=== PATIENT | female | born 1965 | race African-American/Black ===

== ENCOUNTER 2017-05-25 16:08 | Emergency (ER) | payer OTHER ==
[~2017-05-25] VITALS: Ht 162.6 cm; Wt 96.8 kg
[~2017-05-25 16:08] MED LIST: ALBUTEROL0.63 MG/3 IH; CENTRUM COMPLE1 EACH PO; FLUCONAZOLE150 MG PO; LANTUS 3 M100 UNITS1 SC; METFORMIN HCL500 M1 PO; NOVOLOG PE100 UNITS/ SC; PREDNISONE20 MG PO; TORADOL10 MG PO
[2017-05-25 16:58] VITALS: BP 150/85
[2017-05-25] MEDS ORDERED: LANTUS 3 M100 UNITS1 SC (17:17)
[2017-05-25] MEDS ORDERED: MONTELUKAST SOD10 MG PO (17:18)
[2017-05-25] MEDS ORDERED: DULERA 200 MCG/13 GM IH (17:18)
[2017-05-25] MEDS ORDERED: CYCLOBENZAPRINE10 MG PO (17:19)
[2017-05-25] MEDS ORDERED: NAPROXEN500 MG PO (17:19)
[2017-05-25] MEDS ORDERED: INDOCIN25 MG PO (20:04)
== END 2017-05-25 20:26 | disposition home or self-care (01) ==
LOC: EME 16:08 → RME 16:08
DX: S93.402A Sprain of unspecified ligament of left ankle, initial encounter (principal); X58.XXXA Exposure to other specified factors, initial encounter; E11.9 Type 2 diabetes mellitus without complications; Z79.4 Long term (current) use of insulin
CPT/HCPCS: 73610; 99281; 99283

== ENCOUNTER 2017-07-01 15:56 | Emergency (ER) | payer OTHER ==
[~2017-07-01] VITALS: Ht 162.6 cm; Wt 97.6 kg
[~2017-07-01 15:56] MED LIST changes: +CYCLOBENZAPRINE10 MG PO; +DULERA 200 MCG/13 GM IH; +INDOCIN25 MG PO; +MONTELUKAST SOD10 MG PO; +NAPROXEN500 MG PO
[2017-07-01] MEDS ORDERED: VALIUM5 MG PO (18:09)
[2017-07-01] MEDS ORDERED: INDOCIN50 MG PO (18:09)
[2017-07-01 18:39] VITALS: BP 146/72
== END 2017-07-01 18:40 | disposition home or self-care (01) ==
LOC: EME 15:56 → EXP 15:56
DX: M62.838 Other muscle spasm (principal); I10 Essential (primary) hypertension; E11.9 Type 2 diabetes mellitus without complications; Z79.4 Long term (current) use of insulin; Z79.84 Long term (current) use of oral hypoglycemic drugs; J45.909 Unspecified asthma, uncomplicated
CPT/HCPCS: 99281; 99283; J3010

== ENCOUNTER → 2017-08-09 | Outpatient (CLI) | payer OTHER ==
[~2017-08-09] VITALS: Ht 162.6 cm; Wt 95.3 kg
[~2017-08-09] MED LIST changes: +HUMALOG100 UNIT/2 SC; +INDOCIN50 MG PO; +VALIUM5 MG PO; +ZESTORETIC 10-1 EAC1 PO; +ZOCOR40 MG PO
[2017-08-09 11:06] LABS: POINT-OF-CARE METER ID UU14107333
== END | disposition home or self-care (01) ==
LOC: AMB 10:30
PROVIDERS: Internal Medicine
PROC: 0DBK8ZX Excision of Ascending Colon, Via Natural or Artificial Opening Endoscopic, Diagnostic (ICD-10-PCS; principal; 2017-08-09)
DX: Z12.11 Encounter for screening for malignant neoplasm of colon (principal); D12.2 Benign neoplasm of ascending colon; K57.90 Diverticulosis of intestine, part unspecified, without perforation or abscess without bleeding; K21.9 Gastro-esophageal reflux disease without esophagitis; E11.9 Type 2 diabetes mellitus without complications; Z79.4 Long term (current) use of insulin; J45.909 Unspecified asthma, uncomplicated; M51.36 Other intervertebral disc degeneration, lumbar region; Z87.891 Personal history of nicotine dependence; E78.5 Hyperlipidemia, unspecified; Z90.710 Acquired absence of both cervix and uterus; Z80.41 Family history of malignant neoplasm of ovary; Z80.0 Family history of malignant neoplasm of digestive organs; Z84.1 Family history of disorders of kidney and ureter; Z83.3 Family history of diabetes mellitus
CPT/HCPCS: 82948; 88305; 93005; 94640; 99202

== ENCOUNTER 2018-04-17 13:36 | Emergency (ER) | payer OTHER ==
[~2018-04-17] VITALS: Ht 162.6 cm; Wt 100.0 kg
[2018-04-17 15:00] VITALS: BP 159/92
== END 2018-04-17 15:10 | disposition home or self-care (01) ==
LOC: EME 13:36
DX: R42 Dizziness and giddiness (principal); R51 Headache; E11.9 Type 2 diabetes mellitus without complications; Z79.4 Long term (current) use of insulin; J45.909 Unspecified asthma, uncomplicated
CPT/HCPCS: 93005; 99281; 99285